=== PATIENT | female | born 1965 | race Two or more races ===

== ENCOUNTER 2018-11-12 12:08 | Emergency (ER) | payer OTHER ==
--- NOTE | 2018-11-12 12:46 | PDOC ---
Rapid Medical Evaluation Chief Complaint: Lightheaded Time Seen by Provider: 11/12/18 12:31 Medical Evaluation: Allergies Allergy/AdvReac Type Severity Reaction Status Date / Time ibuprofen Allergy Hives Verified 11/12/18 12:44 11/12/18 12:46 I have performed a brief in-person evaluation of this patient. The patient presents with a chief complaint of: lightheaded Pertinent physical exam findings:stable and in NAD, non-focal I have ordered the following:labs, ekg, chest The patient will proceed to the ED for further evaluation.
[2018-11-12 12:52] VITALS: BMI 21.9
[2018-11-12] MEDS ORDERED: LACTATED RINGERS SOLUTION 1000 ML INFUS.BAG IV ONE (13:17)
--- NOTE | 2018-11-12 13:18 | PDOC ---
History of Present Illness - General Chief Complaint: Lightheaded Stated Complaint: DIZZINESS Time Seen by Provider: 11/12/18 12:31 - History of Present Illness Initial Comments: The pt is a 53F w/ no reported PMH who presents for evaluation of several hours of lightheadedness. She states her symptoms started while sitting at work typing. Since that time it has been intermittent, worse with standing/movement, is not described as spinning, and she denies any associated symptoms. She reports feeling similar symptoms in the past but not as intense. She denies recent illness, fevers/chills, chest pain, trouble breathing, abdominal pain, N/ V/C/D, dysuria, hematuria, or blood in her stool. 11/12/18 13:41 Past History - Past Medical History Allergies/Adverse Reactions: Allergies Allergy/AdvReac Type Severity Reaction Status Date / Time ibuprofen Allergy Hives Verified 11/12/18 12:44 Home Medications: Ambulatory Orders Ginkgo Biloba [place] Extract [Ginkgo Biloba] 30 mg PO DAILY 11/12/18 COPD: No - Immunization History Immunization Up to Date: Yes - Suicide/Smoking/Psychosocial Hx Smoking History: Never smoked Hx Alcohol Use: No Drug/Substance Use Hx: No Review of Systems - Review of Systems Able to Perform ROS?: Yes Comments:: GENERAL/CONSTITUTIONAL: No fever or chills. No weakness HEAD, EYES, EARS, NOSE AND THROAT: No change in vision. No ear pain or discharge. No sore throat CARDIOVASCULAR: No chest pain or shortness of breath RESPIRATORY: Denies cough, hemoptysis GASTROINTESTINAL: No nausea, vomiting, diarrhea or constipation GENITOURINARY: No dysuria, frequency, or change in urination MUSCULOSKELETAL: No joint or muscle swelling or pain. No neck or back pain SKIN: No rash NEUROLOGIC: No headache, loss of consciousness, or change in strength/sensation ENDOCRINE: No increased thirst. No abnormal weight change HEMATOLOGIC/LYMPHATIC: No anemia, easy bleeding, or history of blood clots ALLERGIC/IMMUNOLOGIC: No hives or skin allergy 11/12/18 13:17 Is the patient limited [place]uran proficient: No *Physical Exam - Vital Signs Last Vital Signs Temp Pulse Resp BP Pulse Ox 97.6 F 80 16 137/89 98 11/12/18 12:44 11/12/18 12:44 11/12/18 12:44 11/12/18 12:44 11/12/18 12:44 - Physical Exam Comments: GENERAL: Awake, alert, and oriented to person/place/time, in no acute distress HEAD: No signs of trauma, normocephalic, atraumatic EYES: PERRLA, EOMI, sclera anicteric, conjunctiva clear ENT: Hearing grossly normal, nares patent, oropharynx clear without exudates. No uvular deviation. Moist mucosa LUNGS: No distress, speaks in full sentences, clear to auscultation bilaterally HEART: Regular rate and rhythm, normal S1 and S2, no murmurs appreciated, peripheral pulses normal and equal bilaterally ABDOMEN: Soft, nontender, normoactive bowel sounds. No guarding, no rebound EXTREMITIES: Normal inspection, Normal range of motion, no edema. No clubbing or cyanosis NEUROLOGICAL: Cranial nerves II through XII grossly intact. Normal speech, normal gait, no focal sensorimotor deficits SKIN: Warm, Dry 11/12/18 13:17 ED Treatment Course - LABORATORY CBC & Chemistry Diagram: 11/12/18 13:00 11/12/18 12:44 Medical Decision Making - Medical Decision Making The pt is a 53F w/ no reported PMH who presents for evaluation of lightheadedness that started while at rest, is intermittent, and worse with standing Ddx includes orthostatics, less like vertigo, consider acs, metabolic derangement ED Course CMP, CBC, Trop I CXR ECG 1L LR Will reassess 11/12/18 13:18 Lytes wnl No LAURENT LFTs unremarkable Trop I No anemia No leukocytosis Pt symptoms chronic and not likely 2/2 ACS Pt feels improved at this time, heart is RRR, she's breathing comfortably on RA , and ambulating in the ED with a stable gait Plan for D/C w/ PCP f/u and Cardiology referral given Discharge instructions and return precautions given Pt in agreement and verbalized understanding Dispo: home 11/12/18 14:41 *DC/Admit/Observation/Transfer Diagnosis at time of Disposition: Lightheadedness - Discharge Dispostion Disposition: HOME Condition at time of disposition: Stable Decision to Admit order: No - Referrals Referrals: Johnny Lofton MD [Staff Physician] - Erich Mcghee MD [Primary Care Provider] - - Patient Instructions Printed Discharge Instructions: DI for Dizziness-Nonvertigo - Post Discharge Activity
[2018-11-12 13:24] LABS: BASO % 1.2 % (0-2.0); HEMATOCRIT 42.4 % (32.4-45.2); HEMOGLOBIN 14.7 GM/dL (10.7-15.3); LYMPH % 29.1 % (8-40); MCH 31.3 pg (25.7-33.7); MCHC 34.7 g/dl (32.0-36.0); MEAN CELL VOLUME 90.3 fl (80-96); MONO % 7.4 % (3.8-10.2); NEUT % 59.3 % (42.8-82.8); PLATELET COUNT 202 K/MM3 (134-434); WHITE BLOOD COUNT 5.4 K/mm3 (4.0-10.0)
[2018-11-12 13:57] LABS: ALK PHOS 86 U/L (45-117); ANION GAP 5 MMOL/L (8-16); BILIRUBIN,TOTAL 0.4 mg/dL (0.2-1); BLOOD UREA NITROGEN 15.6 mg/dL (7-18); CALCIUM 8.9 mg/dL (8.5-10.1); CHLORIDE 101 mmol/L (98-107); CO2 30 mmol/L (21-32); CREATININE 0.9 mg/dL (0.55-1.3); GLUCOSE,RANDOM 106 mg/dL (74-106); POTASSIUM 4.1 mmol/L (3.5-5.1); SGOT/AST 15 U/L (15-37); SGPT/ALT 18 U/L (13-61); SODIUM 137 mmol/L (136-145); TOT PROT 6.9 g/dl (6.4-8.2)
--- NOTE | 2018-11-12 15:06 | PDOC ---
Documentation entered by Janelle Skelton SCRIBE, acting as scribe for Linda Renee MD. Linda Renee MD: This documentation has been prepared by the juan ribe, Janelle Skelton SCRIBE, under my direction and personally reviewed by me in its entirety. I confirm that the documentation accurately reflects all work, treatment, procedures, and medical decision making performed by me. Attending Attestation - Resident Resident Name: Kyle Rae - ED Attending Attestation I have performed the following: I have examined & evaluated the patient, The case was reviewed & discussed with the resident, I agree w/resident's findings & plan, Exceptions are as noted - HPI HPI: 11/12/18 14:57 The patient is a 53-year-old female with no reported past medical history presents to the emergency department with lightheadedness. The patient reports a prior history of lightheadedness, however, reports todays episode was severe in quality. The patient states she was at work sitting down and typing when she had an onset of lightheadedness. The patient reports she tried drinking water and eating food, without relief. Denies chest pain, shortness of breath, or ringing in the ear. Denies LOC or falls. Allergies: Ibuprofen PCP: Dr. Cornejo. - Physicial Exam PE: 11/12/18 14:58 GENERAL: Awake, alert and oriented. The patient is in no acute distress. ENT: Ears normal, nares patent, oropharynx clear without exudates. Moist mucous membranes. NECK: Normal range of motion, supple, no nuchal rigidity LUNGS: Breath sounds equal, clear to auscultation bilaterally. No wheezes, and no crackles. HEART: Regular rate and rhythm, normal S1 and S2 without murmur, rub or gallop. ABDOMEN: Soft, nontender, normoactive bowel sounds. No guarding, no rebound. No masses palpable. EXTREMITIES: Normal range of motion, no edema. NEUROLOGICAL: +no nystagmus. Answering all questions. Cranial nerves II through XII grossly intact. Normal speech. No focal neurological deficits. SKIN: Warm, Dry, normal turgor, no rashes or lesions noted. - Medical Decision Making 11/12/18 13:48 53 yo F presenting to the ER with a complaint of lightheadedness while at work No associated chest pain or palpitations Pt has had these symptoms in the past but they are typically less severe and shorter lasting, which prompted her ER visit No fevers or chills No recent travel No neurological findings DD: Lightheadedness, ACS unlikely, Post. Stroke unlikely (given normal neurological examination) EKG - NSR rate of 70 bpm, axis nml, no st elevation or depressions t waves upright 11/12/18 15:00 Laboratory Tests 11/12/18 11/12/18 12:44 13:00 WBC 5.4 Hgb 14.7 Hct 42.4 Plt Count 202 BUN 15.6 Creatinine 0.9 Creatine Kinase 84 Troponin I < 0.02 Upon Re Assessment, pt states she feels better Will discharge to home Pt encouraged to follow up with PMD within 2-3 days, return to the ER for any symptom recurrence Clinical impression: lightheadedness, initial presentation
[2018-11-12 15:19] VITALS: BP 133/76; PULSE 72; TEMP 97.8
--- NOTE | 2018-11-15 00:35 | EKG ---
Test Reason : Blood Pressure : / mmHG Vent. Rate : 070 BPM Atrial Rate : 070 BPM P-R Int : 176 ms QRS Dur : 082 ms QT Int : 402 ms P-R-T Axes : 071 011 025 degrees QTc Int : 434 ms POOR DATA QUALITY, INTERPRETATION MAY BE ADVERSELY AFFECTED NORMAL SINUS RHYTHM POSSIBLE LEFT ATRIAL ENLARGEMENT BORDERLINE ECG NO PREVIOUS ECGS AVAILABLE Confirmed by MD Luigi, Joshua ([id number]) on 11/15/2018 12:35:00 AM Referred By: Confirmed By:Joshua Meyers MD
== END 2018-11-12 15:15 | disposition home or self-care (01) ==
LOC: JER 12:08
PROC: 3E0337Z Introduction of Electrolytic and Water Balance Substance into Peripheral Vein, Percutaneous Approach (ICD-10-PCS; principal; 2018-11-12)
DX: R42 Dizziness and giddiness (principal)
CPT/HCPCS: 36415; 80053; 82550; 84484; 85025; 93005; 93010; 99283-25

== ENCOUNTER 2018-11-12 23:29 | Emergency (ER) | payer OTHER ==
[2018-11-12 23:49] VITALS: BP 132/77; PULSE 62; TEMP 97.4; BMI 20.7
--- NOTE | 2018-11-13 00:52 | PDOC ---
History of Present Illness - General Chief Complaint: Nausea/Vomiting Stated Complaint: NAUSEA & VOMITING Time Seen by Provider: 11/13/18 00:02 - History of Present Illness Initial Comments: Lizett Huang is an otherwise healthy 53yo woman who presents to the ED for the second time today for lightheadedness and now with nausea and 3 episodes of vomiting. She reports that she started to feel lightheaded while at work earlier today, and she was seen in the ED. She reports that her labs were all normal (confirmed per chart review), and she was told that she was dehydrated. She went home and "drank a lot of water" throughout the day. She felt improved and was able to eat dinner. She went to bed but woke up after an hour or so feeling as though the room was spinning around, especially when she turned her head. This feeling has since resolved, but she continues to feel nauseated and lightheaded. She was afraid that she might "pass out while she was sleeping" and called EMS to bring her back to the ED. She denies any fever, chest pain, SOB, abdominal pain, change in bowel habits, unusual foods, sick contacts or dysuria. Past History - Past Medical History Allergies/Adverse Reactions: Allergies Allergy/AdvReac Type Severity Reaction Status Date / Time ibuprofen Allergy Hives Verified 11/12/18 23:48 Home Medications: Ambulatory Orders Ginkgo Biloba [place] Extract [Ginkgo Biloba] 30 mg PO DAILY 11/12/18 Cephalexin Monohydrate [Keflex -] 500 mg PO BID #10 capsule 11/13/18 Meclizine HCl [Antivert -] 25 mg PO QID #40 tablet 11/13/18 COPD: No - Immunization History Immunization Up to Date: Yes - Suicide/Smoking/Psychosocial Hx Smoking History: Never smoked Have you smoked in the past 12 months: No Information on smoking cessation initiated: No Hx Alcohol Use: No Drug/Substance Use Hx: No Review of Systems - Review of Systems Comments:: General: No fevers, no chills, no weight or appetite change, + malaise HEENT: No changes in vision, no changes in hearing, no congestion, no sore throat CV: No chest pain, no palpitations, no LE edema Pulm: No SOB, no cough, no wheezing GI: +nausea, +vomiting, no change in bowel habits, no melena : No frequency, no urgency, no dysuria Musc: No back pain, no joint swelling, no recent injury Skin: No rash, no lesions, no erythema Endo: No excessive thirst, no heat/cold intolerance Heme: No unusual bruising or bleeding, no swollen glands Neuro: No syncope, no numbness/tingling, no focal weakness, +dizzy Vasc: No claudication Psych: No recent change in mood, no SI or HI *Physical Exam - Vital Signs Last Vital Signs Temp Pulse Resp BP Pulse Ox 97.4 F L 62 18 132/77 100 11/12/18 23:48 11/12/18 23:48 11/12/18 23:48 11/12/18 23:48 11/12/18 23:48 - Physical Exam Comments: General: Comfortable, no acute distress HEENT: PERRL, EOMI, MMM, voice normal, normal neck ROM. Jay Hallpike negative, no nystagmus Cards: RRR, no murmur appreciated Pulm: Comfortable on room air, clear to auscultation bilaterally Abd: Soft, nontender, nondistended : No CVA tenderness Ext: Atraumatic. No LE edema. ROM intact. Vasc: Extremities WWP. Skin: Normal color, no rashes or lesions Neuro: A&Ox3, CN grossly intact, normal speech, motor/sensory grossly intact and symmetric Psych: Mood appropriate to situation Medical Decision Making - Medical Decision Making 11/13/18 00:47 Lizett Huang is an otherwise healthy 53yo woman who presents to the ED for the second time today for lightheadedness and now with nausea and 3 episodes of vomiting. She previously had normal lab results and EKG, and she reports feeling well for the afternoon and evening at home but had recurrence of dizziness when waking up overnight. - CBC, CMP, trop, EKG completed earlier today. No abnormalities - Vitals WNL, no tachycardia - No longer feeling vertigo, so difficult to determine cause. - Will repeat EKG given continued lightheadedness - IVF started by EMS - UA to evaluate for ketones, UTI 11/13/18 02:09 - EKG w/ 1st degree block. HR 68, normal axis, no ST changes - UA sent to lab, pending - Now reporting dizziness with head movements. Meclizine ordered 11/13/18 02:58 - Feeling somewhat better following meclizine. Now able to sleep comfortably - Still waiting for UA results. Lab called, state sample was received - Due to persistent symptoms, CT head ordered to evaluate for underlying cause of symptoms 11/13/18 03:24 - UA positive for UTI w/ +leuk esterase, 34 WBC, 98 bacteria. - Ceftriaxone ordered. Will give keflex for home 11/13/18 04:32 - CT head negative for acute pathology - Discussed results w/ pt. She is now able to walk, feels improved following meclizine. Will d/c home. Discussed with Dr Staton. Shakira Solomon PGY1 *DC/Admit/Observation/Transfer Diagnosis at time of Disposition: UTI (urinary tract infection) Qualifiers: Urinary tract infection type: acute cystitis Hematuria presence: without hematuria Qualified Code(s): N30.00 - Acute cystitis without hematuria - Discharge Dispostion Condition at time of disposition: Stable Decision to Admit order: No - Prescriptions Prescriptions: Cephalexin Monohydrate [Keflex -] 500 mg PO BID #10 capsule Meclizine HCl [Antivert -] 25 mg PO QID #40 tablet - Referrals Referrals: Erich Mcghee MD [Primary Care Provider] - Joseph Burk MD [Staff Physician] - - Patient Instructions Printed Discharge Instructions: DI for Vertigo, DI for Urinary Tract Infection (UTI) Additional Instructions: Discharge Instructions: You were seen in the emergency department for continued dizziness and nausea with vomiting. You were found to have a urinary tract infection, and antibiotics were started while you were in the ED. Home Care and Follow Up: - Make sure you are drinking plenty of fluids at home to stay hydrated - You have been prescribed an antibiotic called cefalexin (Keflex). This should be taken twice per day for 5 days. Do not stop taking the antibiotic early even if you feel better. - You have also been prescribed a medication called meclizine for vertigo. This may be taken as needed. - Follow up with your regular doctor within the next 2-3 days. - You may wish to follow up with ENT if you have continued vertigo. You have been given contact information for Dr Burk. - Seek immediate care if you have worsening symptoms, you are unable to stay hydrated, you develop fevers to 101F after starting antibiotics, or you have any other medical emergency. - Post Discharge Activity Forms/Work/School Notes: Back to Work
--- NOTE | 2018-11-13 02:08 | PDOC ---
Documentation entered by Tressa Tyson SCRIBE, acting as scribe for Gayathri Staton MD. Gayathri Staton MD: This documentation has been prepared by the Jah aggarwal Xhesika, SCRIBE, under my direction and personally reviewed by me in its entirety. I confirm that the documentation accurately reflects all work, treatment, procedures, and medical decision making performed by me. Attending Attestation - Resident Resident Name: Shakira Solomon - ED Attending Attestation I have performed the following: I have examined & evaluated the patient, The case was reviewed & discussed with the resident, I agree w/resident's findings & plan - HPI HPI: 11/13/18 00:46 The patient is a 53 year old female, with no significant PMH of who presents to the emergency department with nausea and vomiting associated with lightheadedness. The patient states she was at work sitting down at the sudden onset of her lightheadedness. The patient was seen here in the ED 11/12/18 for similar symptoms, her labs and ekg were normal so the patient was discharged home. The patient states she went home, had fluids and ate dinner, felt better, went to bed, however, when she woke up she endorsed 3 episodes of nbnb vomiting and felt like her room was spinning. The patient states she feels lightheaded and nauseated which prompted her arrival to the ED again. The patient denies chest pain, shortness of breath, headache. Denies fever, chills, diarrhea and constipation. Denies dysuria, frequency, urgency and hematuria. Allergies: Ibuprofen PCP: Erich Morocho - Physicial Exam PE: 11/13/18 00:48 GENERAL: Awake, alert, and fully oriented, in no acute distress HEAD: No signs of trauma EYES: PERRLA, EOMI, sclera anicteric, conjunctiva clear ENT: Auricles normal inspection, hearing grossly normal, nares patent, oropharynx clear without exudates. Moist mucosa NECK: Normal ROM, supple, no lymphadenopathy, JVD, or masses LUNGS: Breath sounds equal, clear to auscultation bilaterally. No wheezes, and no crackles HEART: Regular rate and rhythm, normal S1 and S2, no murmurs, rubs or gallops ABDOMEN: Soft, nontender, normoactive bowel sounds. No guarding, no rebound. No masses EXTREMITIES: Normal range of motion, no edema. No clubbing or cyanosis. No cords, erythema, or tenderness NEUROLOGICAL: Cranial nerves II through XII grossly intact. Normal speech, normal gait SKIN: Warm, Dry, normal turgor, no rashes or lesions noted. 11/13/18 03:28 Pt has horizontal nystagmus more prominent on right aldrich gaze. - Medical Decision Making 11/13/18 03:29 Pt has a UTI; all her other labs were normal earlier today, so we sent only urine and we are getting a head CT scan,. 11/13/18 04:31 Patient Name: GEORGETTE LEIJA THIS IS A PRELIMINARY REPORT FROM [facility] DATE OF SERVICE: 2018-11-13 03:06:37 IMAGES: 139 EXAM: HEAD CT WITHOUT CONTRAST HISTORY: Dizzy COMPARISON: None. FINDINGS: Normal brain. No acute intracranial abnormality. No hemorrhage. No visible infarct or mass. Osseous structures are intact. Mucosal thickening left maxillary sinus. 11/13/18 04:47 Pt will be treated for her UTI and she is stable for discharge. 11/13/18 04:58 Pt will also be given meclizine, as she has room spinning vertiginous sx.
[2018-11-13] MEDS ORDERED: MECLIZINE HCL 25 MG TABLET (FP) PO ONE ×2 (02:09→04:32)
[2018-11-13] MEDS ORDERED: MECLIZINE HCL 25 MG TABLET (FP) ONE ×2 (02:11→04:45)
[2018-11-13 03:19] LABS: EPI CELLS 1.2 /HPF (0-5/HPF); HYALINE CASTS 0 /lpf (0-8); PH,URINE 7.5 (5.0-8.0); URINE APPEARANCE Clear; URINE BACTERIA 98.1 /hpf (NEGATIVE); URINE BILIRUBIN Negative (NEGATIVE); URINE COLOR Yellow; URINE GLUCOSE (UA) Negative (NEGATIVE); URINE KETONE Trace (NEGATIVE); URINE LEUK ESTERASE Large (NEGATIVE); URINE NITRITE Negative (NEGATIVE); URINE PROTEIN Negative (NEGATIVE); URINE RBC 1 /hpf (0-4); URINE UROBILINOGEN 0.2 mg/dL (0.2-1.0); URINE WBC 34 /hpf (0-5)
[2018-11-13] MEDS ORDERED: CEFTRIAXONE 1,000 MG in DEXTROSE 5%-WATER - 50 ML IVPB ONE (03:24)
[2018-11-13] MEDS ORDERED: CEFTRIAXONE 1 GM/50 ML BAG ONE (03:37)
--- NOTE | 2018-11-15 00:29 | EKG ---
Test Reason : Blood Pressure : / mmHG Vent. Rate : 068 BPM Atrial Rate : 068 BPM P-R Int : 216 ms QRS Dur : 084 ms QT Int : 430 ms P-R-T Axes : 069 024 036 degrees QTc Int : 457 ms SINUS RHYTHM WITH 1ST DEGREE A-V BLOCK OTHERWISE NORMAL ECG WHEN COMPARED WITH ECG OF 12-NOV-2018 13:22, [place] INTERVAL HAS INCREASED Confirmed by MD Luigi, Joshua ([id number]) on 11/15/2018 12:29:34 AM Referred By: Confirmed By:Joshua Meyers MD
== END 2018-11-13 05:06 | disposition home or self-care (01) ==
LOC: JER 23:29
DX: N39.0 Urinary tract infection, site not specified (principal); H55.00 Unspecified nystagmus; B96.89 Other specified bacterial agents as the cause of diseases classified elsewhere
CPT/HCPCS: 70450-TC; 81003; 93005; 93010; 99282-25

== ENCOUNTER 2019-12-25 18:28 | Emergency (ER) | payer OTHER ==
[2019-12-25 18:55] VITALS: BP 137/83; PULSE 79; TEMP 98.2; BMI 21.1
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
== END 2019-12-25 20:24 | disposition home or self-care (01) ==
LOC: JER 18:28
DX: R07.81 Pleurodynia (principal)
CPT/HCPCS: 71046-TC-FY; 71101-TC-LT-FY; 99284-25